=== PATIENT | female | born 1960 | race Caucasian/White ===

== ENCOUNTER → 2017-01-15 | Outpatient (CLI) | payer MEDICARE, BC | LOC: HEART 5 15:12 | DX: J44.9 Chronic obstructive pulmonary disease, unspecified (principal); F17.210 Nicotine dependence, cigarettes, uncomplicated; R94.2 Abnormal results of pulmonary function studies | CPT/HCPCS: 94060; 94729 ==

== ENCOUNTER 2020-06-03 12:25 | Emergency (ER) | payer MEDICARE, BC ==
[~2020-06-03] VITALS: Ht 160 cm; Wt 85.3 kg
[~2020-06-03 12:25] MED LIST: BREO ELLIPTA 11 EACH INH; ERYTHROMYCIN O3.5 GM OU; GABAPENTIN400 MG PO; HYDROCHLOROTHIA25 MG PO; MEDROL4 MG PO; MS CONTIN30 MG PO; NORVASC10 MG PO; OMEPRAZOLE40 MG PO; PREMARIN0.9 MG PO; PROTONIX40 MG PO; PROVENTIL HFA6.7 GM INH; ROBITUSSIN DM UD5 ML PO; TESSALON PERLE100 MG PO; VALTREX1000 MG PO; VIBRAMYCIN100 MG PO
[2020-06-03 15:10] LABS: HEMOGLOBIN 13.4 gm/dl (12.3-15.3); RED BLOOD COUNT 4.61 M/UL (4.00-5.10); WHITE BLOOD COUNT 6.7 K/UL (4.5-11.0)
[2020-06-03 15:19] LABS: BUN/CREATININE RATIO 20 (0-10)
[2020-06-03] MEDS ORDERED: PROBIOTIC1 EAC1 PO (19:00)
[2020-06-03] MEDS ORDERED: COMBIVENT RESPIM4 GM INH (19:02)
[2020-06-03] MEDS ORDERED: VITAMIN C250 MG PO (19:05)
[2020-06-03] MEDS ORDERED: MONTELUKAST SOD10 MG PO (19:08)
[2020-09-08] MEDS ORDERED: CETIRIZINE HCL10 MG PO (15:20)
[2020-09-08] MEDS ORDERED: SINGULAIR10 MG PO (15:21)
[2020-09-08] MEDS ORDERED: NEURONTIN400 MG PO (15:21)
[2020-09-08] MEDS ORDERED: PERCOCET 10-321 EACH PO (15:22)
[2020-09-08] MEDS ORDERED: PHILLIPS' COLO1 EACH PO (15:23)
[2020-09-08] MEDS ORDERED: MELATONIN PO (15:24)
== END 2020-06-03 22:45 | disposition left against medical advice (07) ==
LOC: ER1 12:25 → CDU 17:04 → ER1 22:45
PROVIDERS: Nurse Practitioner
DX: U07.1 COVID-19 (principal); J96.01 Acute respiratory failure with hypoxia; I10 Essential (primary) hypertension; J44.9 Chronic obstructive pulmonary disease, unspecified; E87.6 Hypokalemia; M79.7 Fibromyalgia; G89.29 Other chronic pain; Z88.0 Allergy status to penicillin; Z88.6 Allergy status to analgesic agent; Z87.891 Personal history of nicotine dependence; Z91.041 Radiographic dye allergy status; Z53.20 Procedure and treatment not carried out because of patient's decision for unspecified reasons
CPT/HCPCS: 36600; 71045; 80053; 82803; 83605; 84484; 85025; 85379; 85652; 86140; 86900; 86901; 90471; 93005; 94664; 94760; 96372; 96374; 96375; 99284; G0378; J1100

== ENCOUNTER 2020-07-02 14:10 | Inpatient (IN) | payer BC, MEDICARE, OTHER ==
[~2020-07-02] VITALS: Ht 160 cm; Wt 89.4 kg
[~2020-07-02 14:10] MED LIST changes: +COMBIVENT RESPIM4 GM INH; +MONTELUKAST SOD10 MG PO; +PROBIOTIC1 EAC1 PO; +VITAMIN C250 MG PO
[2020-07-02 14:52] LABS: HEMOGLOBIN 11.4 gm/dl (12.3-15.3); RED BLOOD COUNT 3.72 M/UL (4.00-5.10); WHITE BLOOD COUNT 12.5 K/UL (4.5-11.0)
[2020-07-02 15:07] LABS: BUN/CREATININE RATIO 15 (0-10)
[2020-07-02] MEDS ORDERED: DULOXETINE HCL60 MG PO (16:42)
[2020-07-02] MEDS ORDERED: TIZANIDINE HCL2 MG PO (16:42)
[2020-07-02] MEDS ORDERED: ENDOCET 10-3251 EACH PO (16:43)
[2020-07-02] MEDS ORDERED: VITAMIN D21250 MCG PO (17:08)
[2020-07-02] MEDS ORDERED: MULTIVITAMIN1 EACH PO (19:04)
[2020-07-02] MEDS ORDERED: ZINC50 MG PO (19:07)
[2020-07-02] MEDS ORDERED: CETIRIZINE HCL10 MG PO (19:07)
[2020-07-02] MEDS ORDERED: MAGIC MOUTHWASH PO (20:03)
[2020-07-02] MEDS ORDERED: VITAMIN C250 MG PO (20:08)
[2020-07-02] MEDS ORDERED: COZAAR 25MG TAB25 MG PO (20:15)
[2020-07-02] MEDS ORDERED: DAILY MULTIPLE1 EAC1 PO (20:16)
[2020-07-02] MEDS ORDERED: VENTOLIN HFA 66.7 GM INH (20:24)
[2020-07-03 05:21] LABS: HEMOGLOBIN 11.4 gm/dl (12.3-15.3); RED BLOOD COUNT 3.72 M/UL (4.00-5.10); WHITE BLOOD COUNT 11.3 K/UL (4.5-11.0)
[2020-07-03 05:41] LABS: BUN/CREATININE RATIO 21 (0-10)
[2020-07-04 02:14] LABS: HEMOGLOBIN 9.9 gm/dl (12.3-15.3); WHITE BLOOD COUNT 8.9 K/UL (4.5-11.0)
[2020-07-04 02:15] LABS: RED BLOOD COUNT 3.24 M/UL (4.00-5.10)
[2020-07-04 02:41] LABS: BUN/CREATININE RATIO 27 (0-10)
[2020-07-05 03:41] LABS: HEMOGLOBIN 11.3 gm/dl (12.3-15.3); WHITE BLOOD COUNT 7.8 K/UL (4.5-11.0)
[2020-07-05 03:43] LABS: RED BLOOD COUNT 3.69 M/UL (4.00-5.10)
[2020-07-05 04:08] LABS: BUN/CREATININE RATIO 27 (0-10)
[2020-07-05] MEDS ORDERED: LEVOFLOXACIN500 MG PO (10:33)
[2020-09-08] MEDS ORDERED: CETIRIZINE HCL10 MG PO (15:20)
[2020-09-08] MEDS ORDERED: SINGULAIR10 MG PO (15:21)
[2020-09-08] MEDS ORDERED: NEURONTIN400 MG PO (15:21)
[2020-09-08] MEDS ORDERED: PERCOCET 10-321 EACH PO (15:22)
[2020-09-08] MEDS ORDERED: PHILLIPS' COLO1 EACH PO (15:23)
[2020-09-08] MEDS ORDERED: MELATONIN PO (15:24)
== END 2020-07-05 12:58 | disposition home or self-care (01) | DRG 193 ==
LOC: ER1 14:10 → CDU 15:47 → MED SURG 4 15:47
PROVIDERS: Physician Assistant Medical; Preventive Medicine Occupational Medicine; ADMIT Family Medicine
DX: J18.9 Pneumonia, unspecified organism (principal); J96.01 Acute respiratory failure with hypoxia; L03.115 Cellulitis of right lower limb; E87.70 Fluid overload, unspecified; F17.210 Nicotine dependence, cigarettes, uncomplicated; J44.9 Chronic obstructive pulmonary disease, unspecified; G89.4 Chronic pain syndrome; R00.0 Tachycardia, unspecified; M79.7 Fibromyalgia; Z85.43 Personal history of malignant neoplasm of ovary; Z20.822 Contact with and (suspected) exposure to COVID-19; Z88.0 Allergy status to penicillin; Z88.6 Allergy status to analgesic agent; Z91.041 Radiographic dye allergy status
CPT/HCPCS: ECHO; 0240U; 36415; 36600; 71045; 80048; 80053; 80202; 81001; 82550; 82553; 82803; 83690; 83735; 83874; 83880; 84132; 84484; 85025; 85027; 85379; 85652; 86140; 87086; 93005; 93306; 93971; 94640; 94664; 94760; 96365; 96366; 96367; 96368; 96375; 99285; J1100; J1650; J1940; J1956; J3370; J7030; J7050; J7070

== ENCOUNTER → 2020-09-08 | Outpatient (CLI) | payer BC, MEDICARE, OTHER ==
[~2020-09-08] MED LIST changes: +CETIRIZINE HCL10 MG PO; +COZAAR 25MG TAB25 MG PO; +DAILY MULTIPLE1 EAC1 PO; +DULOXETINE HCL60 MG PO; +ELIQUIS 2.5 MG2.5 MG PO; +ENDOCET 10-3251 EACH PO; +LEVOFLOXACIN500 MG PO; +MAGIC MOUTHWASH PO; +MELATONIN PO; +MULTIVITAMIN1 EACH PO; +NEURONTIN400 MG PO; +OXYCODONE HCL10 MG PO; +PERCOCET 10-321 EACH PO; +PHILLIPS' COLO1 EACH PO; +SINGULAIR10 MG PO; +TIZANIDINE HCL2 MG PO; +VENTOLIN HFA 66.7 GM INH; +VITAMIN D21250 MCG PO; +ZINC50 MG PO
[2020-09-08 12:42] LABS: HEMOGLOBIN 13.1 gm/dl (12.3-15.3); RED BLOOD COUNT 4.57 M/UL (4.00-5.10); WHITE BLOOD COUNT 8.1 K/UL (4.5-11.0)
[2020-09-08 13:01] LABS: BUN/CREATININE RATIO 13 (0-10)
== END ==
LOC: EDSTATUS 11:00 → OPSV2 11:00
PROVIDERS: Orthopaedic Surgery
DX: Z01.812 Encounter for preprocedural laboratory examination (principal); Z01.810 Encounter for preprocedural cardiovascular examination; M17.12 Unilateral primary osteoarthritis, left knee
CPT/HCPCS: 36415; 80048; 81001; 85025; 87081; 93005

== ENCOUNTER → 2020-09-21 | Outpatient (CLI) | payer BC, OTHER ==
[2020-09-21 17:01] LABS: BUN/CREATININE RATIO 11 (0-10)
== END ==
LOC: LAB 15:24
PROVIDERS: Orthopaedic Surgery
DX: Z01.812 Encounter for preprocedural laboratory examination (principal)
CPT/HCPCS: 80048; 86850; 86900; 86901

== ENCOUNTER 2020-09-22 07:13 | Day surgery (SDC) | payer BC, MEDICARE, OTHER ==
[~2020-09-22] VITALS: Ht 162.6 cm; Wt 78.9 kg
[~2020-09-22 07:13] MED LIST changes: -ELIQUIS 2.5 MG2.5 MG PO; -OXYCODONE HCL10 MG PO
[2020-09-23 03:52] LABS: HEMOGLOBIN 10.4 gm/dl (12.3-15.3); RED BLOOD COUNT 3.53 M/UL (4.00-5.10); WHITE BLOOD COUNT 8.5 K/UL (4.5-11.0)
[2020-09-23 04:13] LABS: BUN/CREATININE RATIO 19 (0-10)
[2020-09-23] MEDS ORDERED: OXYCODONE HCL10 MG PO (14:15)
[2020-09-24 04:53] LABS: HEMOGLOBIN 10.8 gm/dl (12.3-15.3); RED BLOOD COUNT 3.72 M/UL (4.00-5.10); WHITE BLOOD COUNT 10.1 K/UL (4.5-11.0)
[2020-09-24 07:47] LABS: BUN/CREATININE RATIO 14 (0-10)
[2020-09-24] MEDS ORDERED: ELIQUIS 2.5 MG2.5 MG PO (11:44)
== END 2020-09-24 14:56 | disposition home or self-care (01) ==
LOC: OR 07:13 → EDSTATUS 10:30 → M/S 14:26 → OR 09-24 14:56
PROVIDERS: Orthopaedic Surgery
DX: M17.0 Bilateral primary osteoarthritis of knee (principal); M21.162 Varus deformity, not elsewhere classified, left knee; G89.29 Other chronic pain; I10 Essential (primary) hypertension; F11.20 Opioid dependence, uncomplicated; Z85.43 Personal history of malignant neoplasm of ovary; Z86.16 Personal history of COVID-19; Z87.891 Personal history of nicotine dependence; Z88.0 Allergy status to penicillin; Z88.6 Allergy status to analgesic agent; Z91.041 Radiographic dye allergy status; Z79.899 Other long term (current) drug therapy
CPT/HCPCS: 73560; 80048; 85025; 97110-GP-CQ; 97116-GP-CQ; 97161; 97166; 97535; C1776; J0171; J0690; J1100; J2001; J2250; J2270; J2370; J2405; J2704; J2795; J3010; J3370; J7030; J7120

== ENCOUNTER → 2021-12-13 | Outpatient (CLI) | payer BC, MEDICARE ==
[~2021-12-13] MED LIST changes: +ELIQUIS 2.5 MG2.5 MG PO; +OXYCODONE HCL10 MG PO
== END ==
LOC: LAB 13:14
DX: Z20.822 Contact with and (suspected) exposure to COVID-19 (principal)
CPT/HCPCS: U0002